=== PATIENT | male | born 1960 | race Caucasian/White ===

== ENCOUNTER → 2023-10-05 04:07 | Outpatient (CLI) | payer OTHER, SELFPAY ==
--- NOTE | 2023-10-05 08:47 | DI.US_ITS ---
APPROVED REPORT EXAM: Comprehensive 2D, Doppler, and color-flow Echocardiogram Patient Location: Out-Patient [employer] Installer: Nadine Gomez RDCS (AE) Indications: New systolic murmur Other Information Study Quality: Adequate Conclusion Normal left ventricular wall thickness and chamber size. Ejection fraction is 55%. Wall motion is n ormal Normal right ventricular size and function Both atria are normal in size Aortic valve is trileaflet and sclerotic . There is no aortic stenosis. There is mild aortic regurg itation Mildly dilated ascending aorta 3.77 cm Wall motion Left Ventricle The left ventricle is normal size. The left ventricular systolic function is normal. The left ventric ular ejection fraction is within the normal range. There is normal left ventricular wall thickness. T here is normal LV segmental wall motion. There is no ventricular septal defect visualized. LVEF is 55 %. Right Ventricle The right ventricle is normal size. The right ventricular systolic function is normal. Atria The left atrium size is normal. The right atrium size is normal. The interatrial septum is intact wit h no evidence for an atrial septal defect. Aortic Valve Aortic valve is trileaflet. The Aortic valve is sclerotic. There is no aortic valvular stenosis. Mi ld to moderate aortic regurgitation. Mitral Valve The mitral valve is normal in structure. No evidence of mitral valve stenosis. Trace mitral regurgita tion. Tricuspid Valve The tricuspid valve is normal in structure. There is no tricuspid valve stenosis. Trace to mild tricu spid regurgitation. The RVSP is 17.8mmHg. Pulmonic Valve The pulmonary valve is normal in structure. There is no pulmonic valvular stenosis. Trace pulmonic re gurgitation. Great Vessels Aortic root is mildly dilated. The ascending aorta is mildly dilated. Aortic arch is normal in calib er. IVC is normal in size and collapses >50% with inspiration. Pericardium There is no pericardial effusion. 2D Dimensions IVSD d PLAX 1.10 cm M: 0.6-1.2 Ao Root d 4.00 cm M: 3.1 - 3.7 LVPW d PLAX 1.14 cm M: 0.6 - 1.2 Ao Asc Diam d 3.77 cm M: 2.6 - 3.4 LVID d PLAX 4.97 cm M: 4.2 - 5.8 LVDs 3.65 cm M: 2.5 - 4.0 LV EF Teichholz 51.6 % FS 26.49 % LV EDV (Teich) 116.5 mL LV ESV (Teich) 56.3 mL M-Mode TAPSE 2.78 cm (M/F) >1.7 Auto EF LV EDV A4C 124.6 mL LV EDV A2C 112.0 mL LV EDV BP 120.3 mL LV ESV A4C 57.9 mL LV ESV A2C 53.2 mL LV ESV BP 55.3 mL LVEF(%) A4C 53.6 % LVEF(%) A2C 52.5 % LVEF(%) BP 54.1 % LV SV A4C 66.7 ml LV SV A2C 58.8 ml LV SV BP 65.0 ml LV CO A4C 3.9 L/min LV CO A2C 3.7 L/min LV CO BP 3.8 L/min HR A4C 58.05 BPM HR A2C 62.83 BPM LV EDV Index (BP) LA Volume LA Length A4C 4.5 cm LA Length A2C 4.6 cm LA Area A4C s 14.44 cm2 LA Area A2C s 15.24 cm2 LA Vol A4C A-L 38.98 mL LA Vol A2C A-L 43.00 mL LA Vol Biplane A-L 41.1 mL LA Vol/BSA A4C A-L LA Vol/BSA A2C A-L LA Vol/BSA BP A-L 21.3 mL/m2 LA Vol A4C MOD 31.9 mL LA Vol A2C MOD 40.4 mL LA Vol BP MOD 35.9 mL RA Volume RA Area A4C 10.9 cm2 RA ESV A4C (A-L) 25.6mL RA Vol/BSA A4C A-L RA Length A4C 4.0 cm RA ESV A4C (MOD) 24.7mL LV Diastology MV E' medial 0.079 (>0.07 m/s) MV E Vmax 0.61 (0.4-1.3 m/s) MV E/E' MED 7.83 (<14) MV A Vmax 0.65 (0.4-1.3 m/s) MV E' lateral 0.108 (>0.1 m/s) E/A Ratio 0.9 MV E/E' LAT 5.69 (<14) MV E' Average 0.093 m/s MV E/E'(average) 6.59 Aortic Valve AoV Vmax 2.14 m/s LVOT Vmax 1.02 m/s AoV Peak Grad 39.0 mmHg LVOT Peak Grad 4.2 mmHg AoV Area (Vmax) 1.81 cm2 LVOT VTI 0.218 m AoV VTI 0.476 m LVOT Mean Grad 2.2 mmHg AoV Mean Akhil. 1.52 m/s LVOT SV 82.99 mL AoV Mean Grad 10.6 mmHg LVOT Diam s 2.20 cm AoV Area (VTI) 1.75 cm2 AV Regurg Peak Gr. 59.65 mmHg Velocity Ratio 0.48 AR Decel Holt 1.6m/sec2 AR DT 2371 msec AR PHT 688 msec AR Vmax 3.86 m/s Mitral Valve MV DT 301 (160-240 msec) Pulmonary Valve PV Vmax 1.01 (0.5-1.5 m/s) RVOT Vmax 0.53 m/s PV Peak Grad 4.1 mmHg RVOT Peak Gr. 1.1 mmHg PV Mean Akhil 0.67 m/s RVOT VTI 0.116 m PV Mean Grad 2.1 mmHg RVOT Mean Gr. 0.5 mmHg Tricuspid Valve RA Pressure 3.00 mmHg TR Vmax 1.92 m/s TV S' 0.13 m/s TR Peak Grad 14.8 mmHg RVSP (TR) 17.8 mmHg
== END ==
PROVIDERS: PCP Nurse Practitioner Family; Visit Provider Nurse Practitioner Family
DX: R01.1 Cardiac murmur, unspecified (principal); I35.1 Nonrheumatic aortic (valve) insufficiency; I34.0 Nonrheumatic mitral (valve) insufficiency; I37.1 Nonrheumatic pulmonary valve insufficiency
CPT/HCPCS: 93306